=== PATIENT | male | born 1960 | race Caucasian/White ===

== ENCOUNTER → 2016-12-22 | Outpatient (CLI) | payer OTHER ==
--- NOTE | 2016-12-22 11:07 | REP ---
Transrectal prostate sonography: History: Prostate cancer. Fiducial marker placement. Findings: Transrectal prostate sonographic guidance is provided to Dr. Johnston who placed prostate fiducial markers with transrectal ultrasound guided approach. Signed by Gamal Morgan MD 12/22/2016 02:33 P
== END ==
LOC: M SMT 08:17
PROVIDERS: ATTEND Urology
DX: R97.20 Elevated prostate specific antigen [PSA] (principal)
CPT/HCPCS: 76872; A4648

== ENCOUNTER 2017-01-05 09:22 | Outpatient (RCR) | payer OTHER ==
--- NOTE | 2017-01-07 09:00 | RADONC ---
RADIATION ONCOLOGY SIMULATION NOTE DATE: 01/05/2017 CHART NUMBER: Mr. Box was taken to the CT scan for CT simulation of his prostate field. CT was accomplished without difficulty or discomfort. Radiation treatment planning is underway and radiation treatments will begin subsequently. An immobilization device was created and will be used throughout the course of treatment. I was physically present throughout the course of CT simulation.
== END 2017-01-12 ==
LOC: M ONCR 09:22
PROVIDERS: ATTEND Radiology Radiation Oncology
DX: C61 Malignant neoplasm of prostate (principal)

== ENCOUNTER → 2017-01-05 | Outpatient (CLI) | payer OTHER ==
[2017-01-05 09:39] LABS: MEAN CORPUSCULAR HEMOGLOBIN 32.2 pg (27.0-33.0); MEAN CORPUSCULAR HGB CONC 34.4 g/dl (32.0-36.5); MEAN CORPUSCULAR VOLUME 93.6 fl (80.0-96.0); RED CELL DISTRIBUTION WIDTH 12.5 % (11.5-14.5); WHITE BLOOD COUNT 7.1 K/mm3 (4.0-10.0)
== END ==
LOC: M RAD 08:28
PROVIDERS: ATTEND Radiology Radiation Oncology
DX: C61 Malignant neoplasm of prostate (principal)

== ENCOUNTER 2017-01-13 09:43 | Outpatient (RCR) | payer OTHER ==
[2017-01-18] MEDS ORDERED: VIAG100T PO (14:56)
--- NOTE | 2017-01-19 09:57 | RADONC ---
RADIATION ONCOLOGY DATE: RADIATION ONCOLOGY PROGRESS NOTE DATE: 01/18/2017 CHART NUMBER: [id number] Mr. Box is presently at a dose of 540 cGy to his prostate and is tolerating treatments quite well at this point with no complaints related to his radiation therapy. He is having no urinary or bowel difficulties and no bone pain. The patient's review of systems is noncontributory. He denies nausea, vomiting, fevers, chills, night sweats, diplopia, headaches, anxiety or depression, anorexia, weight loss, visual disturbances, chest pain, urinary or bowel difficulties, bone pain, or neurological problems. PHYSICAL EXAMINATION: The patient's skin is in good condition with no evidence of radiation change present. The remainder of his physical exam remains unchanged as well. ASSESSMENT: The patient is clinically doing well and radiation will continue as scheduled. He has requested a prescription for Viagra and I have sent one in.
--- NOTE | 2017-01-26 07:33 | RADONC ---
RADIATION ONCOLOGY PROGRESS NOTE DATE: 01/25/2017 CHART NUMBER: [id number] Mr. Box is presently at a dose of 1440 cGy to his prostate and is tolerating treatments quite well at this point with no complaints related to his radiation therapy. He is having no urinary or bowel difficulties and no bone pain. He continues to complain of impotence. The patient's review of systems is positive for sexual dysfunction but is otherwise noncontributory. He denies nausea, vomiting, fevers, chills, night sweats, diplopia, headaches, anxiety or depression, anorexia, weight loss, visual disturbances, chest pain, urinary or bowel difficulties, bone pain, or neurological problems. PHYSICAL EXAMINATION: The patient's skin is in good condition with no evidence of radiation change present. There is no moist or dry desquamation. The remainder of his physical exam remains unchanged. Mr. Box is tolerating treatments quite well and radiation will continue as scheduled.
--- NOTE | 2017-02-02 08:51 | RADONC ---
RADIATION ONCOLOGY PROGRESS NOTE DATE: 02/01/2017 CHART NUMBER: [id number]. PROGRESS NOTE: Mr. Box is presently at a dose of 1980 cGy to his prostate and is tolerating treatments quite well at this point with no complaints related to his radiation therapy. He is having no urinary or bowel difficulties and no bone pain. REVIEW OF SYSTEMS: The patient's review of systems is noncontributory. Denies nausea, vomiting, fevers, chills, night sweats, diplopia, headaches, anxiety or depression, anorexia, weight loss, visual disturbances, chest pain, urinary or bowel difficulties, bone pain, or neurological problems. PHYSICAL EXAMINATION: The patient's skin is in good condition with no evidence of radiation change present. There is no moist or dry desquamation. The remainder of his physical exam remains unchanged. Mr. Box is tolerating treatments quite well and radiation will continue as scheduled.
--- NOTE | 2017-02-09 08:21 | RADONC ---
RADIATION ONCOLOGY PROGRESS NOTE DATE: 02/08/2017 CHART NUMBER: [id number]. Mr. Box is presently at a dose of 2160 cGy to his prostate and is tolerating treatments quite well at this point with no complaints related to his radiation therapy. He is having no urinary or bowel difficulties and no bone pain. REVIEW OF SYSTEMS: The patient's review of systems is otherwise noncontributory. He denies nausea, vomiting, fevers, chills, night sweats, diplopia, headaches, anxiety or depression, anorexia, weight loss, visual disturbances, chest pain, urinary or bowel difficulties, bone pain or neurological problems. PHYSICAL EXAMINATION: The patient's skin is in good condition with no evidence of radiation change present. There is no moist or dry desquamation. The remainder of his physical exam remains unchanged. Mr. Box is tolerating treatments quite well and radiation will continue as scheduled.
== END 2017-02-12 ==
LOC: M ONCR 09:43
PROVIDERS: ATTEND Radiology Radiation Oncology
DX: C61 Malignant neoplasm of prostate (principal)

== ENCOUNTER 2017-02-15 07:59 | Outpatient (RCR) | payer OTHER ==
[~2017-02-15 07:59] MED LIST: VIAG100T PO
--- NOTE | 2017-02-16 08:22 | RADONC ---
RADIATION ONCOLOGY PROGRESS NOTE DATE: 02/15/2017 CHART NUMBER: Mr. Box is thus far at a dose of 2880 cGy to his prostate and was last treated on Wednesday02/12/2017. He did not get treated today secondary to machine breakdown. As of Wednesday he had been tolerating his treatments quite well. Mr. Box is scheduled to resume radiation tomorrow.
--- NOTE | 2017-02-23 07:17 | RADONC ---
RADIATION ONCOLOGY PROGRESS NOTE: DATE OF SERVICE: 02/22/2017 CHART NO: [id number] Mr. Box is thus far at a dose of 3600 cGy to his prostate and was last treated on 02/19/2017. He was not treated today secondary to machine breakdown. As of Wednesday, the patient was tolerating treatments quite well with no complaints related to his radiation therapy. REVIEW OF SYSTEMS: The patient's review of systems is noncontributory. Denies nausea, vomiting, fevers, chills, night sweats, diplopia, headaches, anxiety or depression, anorexia, weight loss, visual disturbances, chest pain, urinary or bowel difficulties, bone pain, or neurological problems. PHYSICAL EXAMINATION: The patient's skin is in good condition with no evidence of radiation change present. There was no moist or dry desquamation. The remainder of his physical exam, which was limited since he was seen on the treatment machine, was unchanged. Mr. Box is scheduled to resume radiation tomorrow.
--- NOTE | 2017-03-02 07:39 | RADONC ---
RADIATION ONCOLOGY PROGRESS NOTE DATE: CHART NUMBER: PROGRESS NOTE: Mr. Box is presently at a dose of 4500 cGy to his prostate and is tolerating treatments quite well at this point with no complaints related to his radiation therapy. He is having no urinary or bowel difficulties and no bone pain. REVIEW OF SYSTEMS: The patient's review of systems is noncontributory. Denies nausea, vomiting, fevers, chills, night sweats, diplopia, headaches, anxiety or depression, anorexia, weight loss, visual disturbances, chest pain, urinary or bowel difficulties, bone pain, or neurological problems. PHYSICAL EXAMINATION: The patient's skin is in good condition with no evidence of radiation change present. There is no moist or dry desquamation. The remainder of his physical exam remains unchanged. Mr. Box this tolerating treatments quite well and radiation will continue as scheduled.
--- NOTE | 2017-03-09 08:25 | RADONC ---
RADIATION ONCOLOGY PROGRESS NOTE DATE: 03/08/2017 CHART NUMBER: [id number] Mr. Box is presently at a dose of 5220 cGy to his prostate and is tolerating treatments quite well at this point with no complaints related to his radiation therapy. He is having no urinary or bowel difficulties and no bone pain. The patient's review of systems is noncontributory. He denies nausea, vomiting, fevers, chills, night sweats, diplopia, headaches, anxiety or depression, anorexia, weight loss, visual disturbances, chest pain, urinary or bowel difficulties, bone pain, or neurological problems. PHYSICAL EXAMINATION: The patient's skin is in good condition with no evidence of radiation change present. There is no moist or dry desquamation. The remainder of his physical exam remains unchanged. Mr. Box is tolerating treatments quite well and radiation will continue as scheduled.
== END 2017-03-14 ==
LOC: M ONCR 07:59
PROVIDERS: ATTEND Radiology Radiation Oncology
DX: C61 Malignant neoplasm of prostate (principal)

== ENCOUNTER 2017-03-15 09:46 | Outpatient (RCR) | payer OTHER ==
--- NOTE | 2017-03-16 10:30 | RADONC ---
RADIATION ONCOLOGY PROGRESS NOTE: DATE OF SERVICE: 03/15/2017 CHART NO: [id number] Mr. Box is presently at a dose of 5940 cGy to his prostate and is tolerating treatments quite well at this point with no complaints related to his radiation therapy. He is having no urinary or bowel difficulties and no bone pain. REVIEW OF SYSTEMS: The patient's review of systems is noncontributory. Denies nausea, vomiting, fevers, chills, night sweats, diplopia, headaches, anxiety or depression, anorexia, weight loss, visual disturbances, chest pain, urinary or bowel difficulties, bone pain, or neurological problems. PHYSICAL EXAMINATION: The patient's skin is in good condition with no evidence of radiation change present. There is no moist or dry desquamation. The remainder of his physical exam remains unchanged. Mr. Box is tolerating treatments quite well and radiation will continue as scheduled.
[2017-03-16] MEDS ORDERED: ASPI81TA7 (17:27)
[2017-03-16] MEDS ORDERED: TAMSULOSIN (17:27)
[2017-03-16] MEDS ORDERED: FLOM5CAP PO (19:19)
[2017-03-16] MEDS ORDERED: ASPI1TAB PO (19:19)
[2017-03-16] MEDS ORDERED: CALCTAB68 PO (19:19)
--- NOTE | 2017-03-23 07:49 | RADONC ---
RADIATION ONCOLOGY PROGRESS NOTE DATE: 03/22/2017 CHART NUMBER: [id number] Mr. Box is presently at a dose of 6660 cGy to his prostate and is tolerating treatments quite well at this point with no complaints related to his radiation therapy. He is having no urinary or bowel difficulties and no bone pain. REVIEW OF SYSTEMS: The patient's review of systems is noncontributory. Denies nausea, vomiting, fevers, chills, night sweats, diplopia, headaches, anxiety or depression, anorexia, weight loss, visual disturbances, chest pain, urinary or bowel difficulties, bone pain, or neurological problems. PHYSICAL EXAMINATION: The patient's skin is in good condition with no evidence of radiation change present. There is no moist or dry desquamation. The remainder of his physical exam remains unchanged. Ms. Box is tolerating treatments quite well and radiation will continue as scheduled.
--- NOTE | 2017-03-30 09:46 | RADONC ---
RADIATION ONCOLOGY PROGRESS NOTE DATE: 03/29/2017 CHART NUMBER: PROGRESS NOTE: Mr. Box is presently at a dose of 7480 cGy to his prostate and is tolerating treatments quite well at this point with no complaints related to his radiation therapy. He is having no urinary or bowel difficulties. No bone pain. REVIEW OF SYSTEMS: The patient's review of systems is noncontributory. Denies nausea, vomiting, fevers, chills, night sweats, diplopia, headaches, anxiety or depression, anorexia, weight loss, visual disturbances, chest pain, urinary or bowel difficulties, bone pain, or neurological problems. PHYSICAL EXAMINATION: The patient's skin is in good condition with no evidence of radiation change present. There is no moist or dry desquamation. The remainder of his physical exam remains unchanged. Mr. Box is tolerating treatments quite well and radiation will continue as scheduled.
--- NOTE | 2017-04-01 08:03 | RADONC ---
RADIATION ONCOLOGY TREATMENT SUMMARY DATE: 03/31/2017 CHART NUMBER: [id number] DIAGNOSIS: Prostate cancer. STAGE: IV, [id number] versus stage IV, [id number]. ECOG PERFORMANCE STATUS: 0. TREATMENT SUMMARY: Mr. Box is a pleasant 56-year-old white male with the diagnosis of a poorly differentiated Shyanne score 9 (4-5) adenocarcinoma of prostate with a PSA of 31.81 and questionable pelvic as well as periaortic lymphadenopathy who presented to us for consideration of definitive external beam radiation therapy. We treated the patient to his prostate for a total dose of 7920 cGy delivered in 44 fractions of 180 cGy each over 77 elapsed days from 01/13/2017 through 03/31/2017. The patient's prostate was treated on the linear accelerator utilizing IMRT/IGRT. We initially to the prostate, seminal vesicles and first echelon of lymph nodes for a total dose of 4500 cGy delivered in 25 fractions of 180 cGy each. We subsequently coned down to deliver an additional 900 cGy to the prostate and seminal vesicles bringing the seminal vesicles to a total dose of 5400 cGy. We then delivered an additional 2520 cGy the prostate itself once again bringing it to a total dose of 7920 cGy. Mr. Box tolerated his treatments quite well and was able to complete therapy as prescribed without interruption. The patient is scheduled to see me again in 1 month for further followup. He will also continued to be followed by his other physicians as well. Thank you for allowing us to participate in the care of this very pleasant gentleman. If I could be of any further assistance or provide you with any information, please feel free to contact me anytime. cc: Ede Johnston MD *Dr. Bam Benz *Virginia Hammonds,
== END 2017-04-14 ==
LOC: M ONCR 09:46
PROVIDERS: ATTEND Radiology Radiation Oncology
DX: C61 Malignant neoplasm of prostate (principal)

== ENCOUNTER 2017-03-16 17:18 | Day surgery (SDC) | payer OTHER ==
[~2017-03-16] VITALS: Ht 175.3 cm; Wt 87.0 kg
[2017-03-16] MEDS ORDERED: TAMSULOSIN (17:27)
[2017-03-16] MEDS ORDERED: ASPI81TA7 (17:27)
[2017-03-16] MEDS ORDERED: CALCTAB68 PO (19:19)
[2017-03-16] MEDS ORDERED: ASPI1TAB PO (19:19)
[2017-03-16] MEDS ORDERED: FLOM5CAP PO (19:19)
--- NOTE | 2017-03-16 20:43 | CR ---
DATE OF CONSULTATION: 03/16/2017 This is a 56-year-old white male who was transferred from [facility] to the [facility] Emergency Room for an esophageal food impaction that was sustained 24 hours previously at around 10:30 at night after he had eaten steak. The patient has intermittent problems with dysphagia and has had a previous upper endoscopy and food impaction problem approximately 3 years ago. However, there was no evidence of any record of that here at [facility]. He is having trouble swallowing his own secretions and is possibly bringing up his own saliva. He denies any involuntary weight loss. No fevers, night sweats or shaking chills. His only recent new medical problem is that he is under therapy for prostate cancer. PAST MEDICAL HISTORY: 1. Previous history food impaction. 2. Treatment for prostate cancer. PAST SURGICAL HISTORY: Noncontributory to the above problem. SOCIAL HISTORY: Again, noncontributory. ALLERGIES: No known declared allergies. MEDICATIONS: Current medications include a baby aspirin daily, tamsulosin/Flomax 0.4 mg capsule daily and calcium and vitamin D, 600 plus D 600-400 one tablet daily. REVIEW OF SYSTEMS: Noncontributory to above problems. PHYSICAL EXAMINATION: He is a well-developed, well-nourished white male in some distress, spitting up his own secretions. Chest is clear to auscultation. Cardiovascular exam showed a regular rhythm. No murmurs or gallops. Normal physiological split, S1, S2. Abdomen: Soft, nontender. No masses. No guarding, rebound, hepatosplenomegaly. Bowel sounds positive. Extremities: No cyanosis, clubbing or edema. Geovany's negative. No laboratory studies were drawn for this issue. ANALYSIS: Esophageal food impaction, probably secondary to chronic esophageal stricture. At the present time, the plan will be to set the patient up for an upper endoscopy for removal in some way of the steak that he had eaten from the night before. Upper endoscopy will be planned in the main operating room (OR).
[2017-03-16] MEDS ORDERED: ONDANSETRON 4MG/2ML VIAL (J2405) IV PRN (23:30)
[2017-03-16] MEDS ORDERED: MEPERIDINE INJ 25 MG/ML VIAL (J2175) IV PRN (23:30)
[2017-03-16] MEDS ORDERED: METOCLOPRAMIDE INJ 10MG/2ML VIAL (J2765) IV PRN (23:30)
[2017-03-16] MEDS ORDERED: fentaNYL 100 MCG/2 ML INJECTION (J3010) IV PRN (23:30)
[2017-03-16] MEDS ORDERED: PERCOCET 5MG/325MG TAB PO PRN (23:30)
[2017-03-16] MEDS ORDERED: LR 1,000 ML IV SCH (23:30)
[2017-03-17 00:04] VITALS: BP 109/70
[2017-03-17 00:33] VITALS: BP 114/79
[2017-03-17 00:50] VITALS: BP 116/76
--- NOTE | 2017-03-17 07:53 | ROOR ---
Patient Name: Kee Box Procedure Date: 03/16/2017 10:25 PM Date of : 1960 Age: 56 Gender: Male Note Status: Finalized Procedure: Upper GI endoscopy + Foreign Body Removal Indications: Foreign body in the esophagus Providers: Jonatan Siegel MD Referring MD: Jonatan Siegel MD Requesting Provider: Medicines: General Anesthesia Complications: No immediate complications. Procedure: Pre-Anesthesia Assessment: - The heart rate, respiratory rate, oxygen saturations, blood pressure, adequacy of pulmonary ventilation, and response to care were monitored throughout the procedure. The Endoscope was introduced through the mouth, and advanced to the second part of duodenum. The upper GI endoscopy was accomplished without difficulty. The patient tolerated the procedure well. Findings: Food was found in the proximal esophagus. Removal of food was accomplished. One severe benign-appearing, intrinsic stenosis was found 20 cm from the incisors. And was traversed. No other significant abnormalities were identified in a careful examination of the stomach. Localized mild inflammation characterized by congestion (edema), erythema and aphthous ulcerations was found in the duodenal bulb. The exam was otherwise without abnormality. Impression: - Food in the proximal esophagus. Removal was successful. - Benign-appearing esophageal stenosis. - Acute duodenitis. - The examination was otherwise normal. Recommendation: - Patient has a contact number available for emergencies. The signs and symptoms of potential delayed complications were discussed with the patient. Return to normal activities tomorrow. Written discharge instructions were provided to the patient. - Discharge patient to home. - Continue present medications. - Return to GI office in 3 weeks. - The findings and recommendations were discussed with the patient's family. Jonatan Siegel MD Jonatan Siegel MD 03/17/2017 7:53:37 AM This report has been signed electronically. Number of Addenda: 0 Note Initiated On: 03/16/2017 10:25 PM Estimated Blood Loss: Estimated blood loss: none.
[2017-03-18] MEDS ORDERED: PROPOFOL 200 MG/20 ML VIAL As Ordered ONE (08:15)
[2017-03-18] MEDS ORDERED: LIDOCAINE 2% INJ 100 MG/5 ML SDV (FOR ANES.) As Ordered ONE (08:15)
[2017-03-18] MEDS ORDERED: fentaNYL 100 MCG/2 ML INJECTION (J3010) As Ordered ONE (08:15)
[2017-03-18] MEDS ORDERED: MIDAZOLAM INJ 2 MG/2 ML VIAL (J2250) As Ordered ONE (08:15)
[2017-03-18] MEDS ORDERED: SUCCINYLCHOLINE 100 MG/5 ML SYRINGE (J0330) As Ordered ONE (08:15)
[2017-03-18] MEDS ORDERED: ONDANSETRON 4MG/2ML VIAL (J2405) As Ordered ONE (08:15)
[2017-03-18] MEDS ORDERED: dexameTHASONE 4 MG/ML 1ML VIAL (J1100) As Ordered ONE (08:15)
== END 2017-03-17 01:00 | disposition home or self-care (01) ==
LOC: M ED 18:12 → M SDC 19:26 → M PED 03-17 → M SDC 03-17 01:00
PROVIDERS: ATTEND Internal Medicine Gastroenterology
DX: T18.128A Food in esophagus causing other injury, initial encounter (principal); K22.2 Esophageal obstruction; K29.80 Duodenitis without bleeding; R13.10 Dysphagia, unspecified; X58.XXXA Exposure to other specified factors, initial encounter; Y92.89 Other specified places as the place of occurrence of the external cause; Z79.899 Other long term (current) drug therapy; Z79.82 Long term (current) use of aspirin; F17.210 Nicotine dependence, cigarettes, uncomplicated; C61 Malignant neoplasm of prostate
CPT/HCPCS: 43247; 99282; J0330; J1100; J2250; J2405; J3010

== ENCOUNTER → 2017-04-27 | Outpatient (REF) | payer OTHER ==
[~2017-04-27] MED LIST changes: +ASPI1TAB PO; +ASPI81TA7; +CALCTAB68 PO; +FLOM5CAP PO; +TAMSULOSIN
== END ==
LOC: M LAB REF 16:48
PROVIDERS: ATTEND Surgery
DX: L02.212 Cutaneous abscess of back [any part, except buttock and flank] (principal)

== ENCOUNTER → 2017-05-03 | Outpatient (CLI) | payer OTHER | LOC: M ONCR 15:26 | PROVIDERS: ATTEND Radiology Radiation Oncology | DX: C16.1 Malignant neoplasm of fundus of stomach (principal) ==

== ENCOUNTER → 2017-05-12 | Outpatient (CLI) | payer MEDICAID ==
[~2017-05-12] MED LIST changes: +ASPI1TAB15; -ASPI81TA7
== END ==
LOC: M OUTALCOH 13:28
PROVIDERS: ATTEND Psychiatry & Neurology Psychiatry
DX: Z03.89 Encounter for observation for other suspected diseases and conditions ruled out (principal)

== ENCOUNTER → 2017-08-24 | Outpatient (CLI) | payer MEDICAID | LOC: M OUTALCOH 08:20 | PROVIDERS: ATTEND Psychiatry & Neurology Psychiatry | DX: F10.10 Alcohol abuse, uncomplicated (principal); F15.20 Other stimulant dependence, uncomplicated ==

== ENCOUNTER → 2017-10-14 | Outpatient (RCR) | payer MEDICAID | LOC: M OUTALCOH 09-21 15:00 | PROVIDERS: ATTEND Psychiatry & Neurology Psychiatry | DX: F10.20 Alcohol dependence, uncomplicated (principal); F15.10 Other stimulant abuse, uncomplicated; F17.200 Nicotine dependence, unspecified, uncomplicated ==

== ENCOUNTER 2017-10-18 15:01 | Outpatient (RCR) | payer MEDICAID | END 2017-11-14 | LOC: M OUTALCOH 15:01 | DX: F10.20 Alcohol dependence, uncomplicated (principal); F15.10 Other stimulant abuse, uncomplicated; F17.200 Nicotine dependence, unspecified, uncomplicated ==

== ENCOUNTER 2017-11-17 10:45 | Outpatient (RCR) | payer MEDICAID | END 2017-12-15 | LOC: M OUTALCOH 10:45 | DX: F10.20 Alcohol dependence, uncomplicated (principal); F15.10 Other stimulant abuse, uncomplicated; F17.200 Nicotine dependence, unspecified, uncomplicated ==

== ENCOUNTER → 2017-12-01 | Outpatient (REF) | payer MEDICAID | LOC: M LAB REF 15:40 | DX: R50.9 Fever, unspecified (principal); R05 Cough ==

== ENCOUNTER 2017-12-20 10:06 | Outpatient (RCR) | payer MEDICAID | END 2018-01-12 | LOC: M OUTALCOH 12-22 13:00 | DX: F10.20 Alcohol dependence, uncomplicated (principal); F15.10 Other stimulant abuse, uncomplicated; F17.200 Nicotine dependence, unspecified, uncomplicated ==

== ENCOUNTER → 2017-12-21 | Outpatient (REF) | payer MEDICAID ==
[2017-12-22 12:37] LABS: PROSTATIC SPECIFIC AG MONITOR < 0.01 NG/ML (< 4.0)
== END ==
LOC: M LABDRAWC 06:57
DX: C61 Malignant neoplasm of prostate (principal)

== ENCOUNTER 2018-01-21 15:03 | Outpatient (RCR) | payer MEDICAID | END 2018-02-12 | LOC: M OUTALCOH 15:03 | DX: F10.20 Alcohol dependence, uncomplicated (principal); F15.10 Other stimulant abuse, uncomplicated; F17.200 Nicotine dependence, unspecified, uncomplicated ==

== ENCOUNTER 2018-02-14 11:21 | Outpatient (RCR) | payer MEDICAID | END 2018-03-14 | LOC: M OUTALCOH 11:21 | DX: F10.20 Alcohol dependence, uncomplicated (principal); F15.10 Other stimulant abuse, uncomplicated; F17.200 Nicotine dependence, unspecified, uncomplicated ==

== ENCOUNTER 2018-03-16 09:19 | Outpatient (RCR) | payer MEDICAID | END 2018-04-14 | LOC: M OUTALCOH 03-21 15:56 | DX: F10.20 Alcohol dependence, uncomplicated (principal); F15.10 Other stimulant abuse, uncomplicated; F17.200 Nicotine dependence, unspecified, uncomplicated ==

== ENCOUNTER → 2018-04-22 | Outpatient (REF) | payer OTHER ==
[2018-04-22 12:09] LABS: PROSTATIC SPECIFIC AG MONITOR < 0.01 NG/ML (< 4.0)
== END ==
LOC: M SFHCCLAY 07:15
DX: C61 Malignant neoplasm of prostate (principal)

== ENCOUNTER 2018-04-28 08:22 | Outpatient (RCR) | payer MEDICAID | END 2018-05-14 | LOC: M OUTALCOH 05-13 12:00 | DX: F10.20 Alcohol dependence, uncomplicated (principal); F15.10 Other stimulant abuse, uncomplicated; F17.200 Nicotine dependence, unspecified, uncomplicated ==

== ENCOUNTER → 2018-08-23 | Outpatient (REF) | payer OTHER | LOC: M LABSMT 13:25 | DX: C61 Malignant neoplasm of prostate (principal) ==

== ENCOUNTER → 2018-08-23 | Outpatient (REF) | payer OTHER ==
[2018-08-23 12:28] LABS: PROSTATIC SPECIFIC AG MONITOR < 0.01 NG/ML (< 4.0)
== END ==
LOC: M LABDRAWC 11:20
DX: C61 Malignant neoplasm of prostate (principal)

== ENCOUNTER 2018-10-07 16:15 | Emergency (ER) | payer OTHER ==
[2018-10-07 17:20] LABS: BASO # 0.1 10^3/uL (0.0-0.2); BASO % 0.5 % (0.0-1.0); EOS # 0.1 10^3/uL (0.0-0.50); EOS % 0.6 % (0.0-3.0); HEMATOCRIT 40.7 % (42.0-52.0); IMMATURE GRANULOCYTE % 0.7 % (0-3.0); LYMPH # 1.3 10^3/uL (1.5-4.5); LYMPH % 10.4 % (24.0-44.0); MEAN CORPUSCULAR HEMOGLOBIN 31.3 pg (27.0-33.0); MEAN CORPUSCULAR HGB CONC 34.4 g/dl (32.0-36.5); MEAN CORPUSCULAR VOLUME 91.1 fl (80.0-96.0); MONO # 0.9 10^3/uL (0.0-0.8); MONO % 6.8 % (0.0-5.0); NEUTROPHILS # 10.2 10^3/uL (1.8-7.7); PLATELET COUNT, AUTOMATED 234 10^3/uL (150-450); RED BLOOD COUNT 4.47 10^6/uL (4.30-6.10); RED CELL DISTRIBUTION WIDTH 13.1 % (11.5-14.5); WHITE BLOOD COUNT 12.6 10^3/uL (4.0-10.0)
[2018-10-07 17:36] LABS: ALBUMIN 3.8 GM/DL (3.2-5.2); ALBUMIN/GLOBULIN RATIO 1.09 (1.00-1.93); ALKALINE PHOSPHATASE 115 U/L (45-117); ALT/SGPT 27 U/L (12-78); ANION GAP 11 MEQ/L (8-16); AST/SGOT 22 U/L (7-37); BILIRUBIN,DIRECT < 0.1 MG/DL (0.0-0.2); BILIRUBIN,TOTAL 0.3 MG/DL (0.2-1.0); BLOOD UREA NITROGEN 16 MG/DL (7-18); CALCIUM LEVEL 8.9 MG/DL (8.5-10.1); CARBON DIOXIDE LEVEL 21 MEQ/L (21-32); CHLORIDE LEVEL 103 MEQ/L (98-107); CREATININE FOR GFR 0.78 MG/DL (0.70-1.30); GLOMERULAR FILTRATION RATE > 60.0 (>56); GLUCOSE, FASTING 114 MG/DL (70-100); POTASSIUM SERUM 3.9 MEQ/L (3.5-5.1); SODIUM LEVEL 135 MEQ/L (136-145); TOTAL PROTEIN 7.3 GM/DL (6.4-8.2)
[2018-10-07] MEDS: ONDANSETRON 4MG/2ML VIAL (J2405) IV (17:37)
[2018-10-07] MEDS: MORPHINE 2 MG/ML 1ML SYRINGE (J2270) IV ×2 (17:41→18:15)
[2018-10-07] MEDS: ceFAZolin SOD 1 GM in D5W MINI-BAG PLUS 50 ML IV (17:43)
[2018-10-07] MEDS: NS 1,000 ML IV (17:50)
[2018-10-07 17:54] LABS: INR 0.91; PARTIAL THROMBOPLASTIN TIME 24.2 SECONDS (25.4-37.6); PROTHROMBIN TIME 12.3 SECONDS (12.1-14.4)
== END 2018-10-07 18:18 | disposition short-term general hospital (02) ==
LOC: M ED 16:15
DX: T23.302A Burn of third degree of left hand, unspecified site, initial encounter (principal); T23.291A Burn of second degree of multiple sites of right wrist and hand, initial encounter; S60.551A Superficial foreign body of right hand, initial encounter; T23.242A Burn of second degree of multiple left fingers (nail), including thumb, initial encounter; T23.341A Burn of third degree of multiple right fingers (nail), including thumb, initial encounter; T20.14XA Burn of first degree of nose (septum), initial encounter; T31.0 Burns involving less than 10% of body surface; X04.XXXA Exposure to ignition of highly flammable material, initial encounter; Y92.89 Other specified places as the place of occurrence of the external cause; F17.200 Nicotine dependence, unspecified, uncomplicated; Z91.030 Bee allergy status
CPT/HCPCS: J0690

== ENCOUNTER → 2019-02-21 | Outpatient (REF) | payer OTHER ==
[~2019-02-21] MED LIST changes: -ASPI1TAB PO; +ASPI81TA26 PO; +FLOM0.4C39 PO; -FLOM5CAP PO
== END ==
LOC: M LABSMT 07:14 → M LABDRAWC 07:17
PROVIDERS: ATTEND Urology
DX: C61 Malignant neoplasm of prostate (principal)

== ENCOUNTER → 2019-08-18 | Outpatient (REF) | payer OTHER ==
[2019-08-18 12:48] LABS: PROSTATIC SPECIFIC AG MONITOR < 0.01 NG/ML (< 4.00)
[2019-08-18 12:55] LABS: TESTOSTERONE 43 NG/DL (241-827)
== END ==
LOC: M LABSMT 08:47
PROVIDERS: ATTEND Urology
DX: C61 Malignant neoplasm of prostate (principal); R68.82 Decreased libido

== ENCOUNTER → 2020-02-23 | Outpatient (REF) | payer OTHER | LOC: M SFHCCLAY 10:38 | PROVIDERS: ATTEND Urology | DX: C61 Malignant neoplasm of prostate (principal) ==

== ENCOUNTER → 2021-01-16 | Outpatient (REF) | payer OTHER, SELFPAY ==
[~2021-01-16] MED LIST changes: +ASPI-546; -ASPI1TAB15
== END ==
LOC: M LABSMT 08:26
PROVIDERS: ATTEND Urology
DX: C61 Malignant neoplasm of prostate (principal)